=== PATIENT | male | born 1970 | race Caucasian/White ===

== ENCOUNTER → 2016-10-14 | Outpatient (CLI) | payer OTHER | END | disposition home or self-care (01) | LOC: CECH 13:18 | DX: I35.9 Nonrheumatic aortic valve disorder, unspecified (principal); I51.7 Cardiomegaly; I50.30 Unspecified diastolic (congestive) heart failure; I35.1 Nonrheumatic aortic (valve) insufficiency | CPT/HCPCS: 93306 ==

== ENCOUNTER → 2016-11-17 | Outpatient (CLI) | payer OTHER | END | disposition home or self-care (01) | LOC: CLAB 09:22 | DX: R73.9 Hyperglycemia, unspecified (principal) | CPT/HCPCS: 36415; 83036 ==